=== PATIENT | male | born 1945 | race Caucasian/White ===

== ENCOUNTER 2022-03-21 13:33 | Inpatient (IN) | payer BC, SELFPAY ==
[2022-03-21] VITALS (10 sets, daily range): BP systolic 143–173; BP diastolic 55–83; PULSE 47–63; RESP 18; TEMP 36.2–36.5; O2SAT 99–100; BMI 32.5; BMI 33.2
--- NOTE | 2022-03-21 14:13 | ED.GENADULT ---
HPI - General Adult General Time Seen by Provider: 14:14 Date Seen: 03/21/22 Chief complaint: Unspecified Complaint, Adult Stated complaint: Low sodium/from [facility] Time Seen by Provider: 03/21/22 14:00 Source: patient Mode of arrival: ambulatory History of Present Illness HPI narrative: Dashawn is a 76-year-old male past medical history includes hypertension currently on metoprolol and lisinopril presents emerged department from clinic with abnormal lab. Patient states over the last 3 weeks he has had increased weakness and lightheadedness, he was seen by his primary Dr. Duckworth today, labs, ECG and XR chest were performed. Patient has also had increased lower extremity swelling over the last 6 months, plan was for him to be placed on Lasix, his metabolic panel showed a sodium level of 120, he was told presents emerged department. Patient denies any chest pain or shortness of breath, the last 3 weeks he has had decreased appetite, he denies any loss of taste or smell, does not usually use salt, but he has a bag of fritos for lunch daily. He has no history of CAD, heart failure or stroke. No family history. No family history. He denies any exertional shortness of breath or orthopnea. Denies any cough, fevers, chills, urinary or bowel complaints. No other concerns at this time. Related Data Home Medications Medication Instructions Recorded Confirmed cholecalciferol (vitamin D3) 250 250 mcg PO QDAY cap 03/21/22 03/21/22 mcg (10,000 unit) capsule finasteride 5 mg tablet 5 mg PO DAILY 03/21/22 03/21/22 lisinopril 20 mg tablet 20 mg PO DAILY tab 03/21/22 03/21/22 metoprolol succinate 50 mg mg PO DAILY 03/21/22 03/21/22 tablet,extended release 24 hr multivitamin (Multiple Vitamins 1 tab PO QDAY 03/21/22 03/21/22 tablet) simvastatin 20 mg tablet 20 mg PO .Bedtime 03/21/22 03/21/22 Previous Rx's Medication Instructions Recorded furosemide 20 mg tablet (Lasix) 20 mg PO QAM #30 tab 03/21/22 Allergies Allergy/AdvReac Type Severity Reaction Status Date / Time hydrochlorothiazide Allergy Intermediate heart Verified 03/21/22 09:48 papitations Review of Systems Status of ROS: Reports: 10 or more systems reviewed and unremarkable except as noted in History and below [facility] Medical History Edema Surgical History Status post transurethral resection of prostate Social History Smoking Status: Never smoker How often do you have a drink containing alcohol: 4 or more times a week How many standard drinks containing alcohol do you have on a typical day: 3 or 4 How often do you have six or more drinks on one occasion: Never AUDIT-C Alcohol total score: 5 Non-prescribed substance use: denies use Exam Narrative: Exam Narrative: General: No obvious distress sitting comfortably HEENT: Tympanic membranes within normal limits bilaterally oropharynx is clear and moist, pupils round reactive to light, extraocular muscles intact Neck: Supple full range of motion Lungs: Clear to auscultation bilaterally Heart: Normal sinus rhythm S1-S2: Abdomen: Obese, soft, bowel sounds present Extremities: +5 strength his upper lower extremities, he has +3 pitting edema lower extremities bilaterally, CMS intact. Neuro: Alert awake and oriented x3, no focal deficits, ambulation within normal limits Const: Vital Signs, click to edit/add: Vital Signs - 24 hr 03/21/22 13:52 Temperature 97.7 F Pulse Rate [Right Pulse Oximeter] 50 L Respiratory Rate 18 Blood Pressure [Ri ght Upper Arm] 170/67 H Pulse Oximetry 100 Course Course Hospital Course: 2:00 PM: AIDET performed. vitals are stable. Workup will include IV peripheral, 0.9 normal saline 125 mL/hour, will repeat CBC, metabolic panel urinalysis and a NT pro BNP. Likely admit for sodium supplementation, patient is doing well otherwise. Differential diagnosis include but not limited to, medication side effect, hypoglycemia, hypercalcemia hypo or hypernatremia, hypothyroidism, hepatic encephalopathy, sepsis, COVID, seizures as well aside etiologies. Reevaluation(s) Reevaluation #1: Sodium critical low 120, labs otherwise stable, NT proBNP elevated at 714, imaging from this afternoon showed no acute cardiopulmonary process, exam showed lower extremity edema but no other signs of heart failur, EKG was within normal limits. Plan to admit for admission, this was discussed with patient and he was in agreement. spoke with Dr. Marcelino Hospitalist and he accepts care of the patient. Vital Signs Vital signs: Initial Vital Signs Temperature 97.7 F 03/21/22 13:52 Temperature Source Temporal Artery Scan 03/21/22 13:52 Pulse Rate 50 L 03/21/22 13:52 Respiratory Rate 18 03/21/22 13:52 Blood Pressure 170/67 H 03/21/22 13:52 Blood Pressure Mean 101 03/21/22 13:52 Blood Pressure Position Sitting 03/21/22 13:52 Pulse Oximetry 100 03/21/22 13:52 Oxygen Delivery Method 03/21/22 13:52 Vital Signs Temperature 97.7 F 03/21/22 13:52 Pulse Rate 50 L 03/21/22 13:52 Respiratory Rate 18 03/21/22 13:52 Blood Pressure 170/67 H 03/21/22 13:52 Pulse Oximetry 100 03/21/22 13:52 Temperature 97.7 F 03/21/22 13:52 Pulse Rate 50 L 03/21/22 13:52 Respiratory Rate 18 03/21/22 13:52 Blood Pressure 170/67 H 03/21/22 13:52 Pulse Oximetry 100 03/21/22 13:52 Medical Decision Making Lab Data Labs: Lab Results 03/21/22 03/21/22 03/21/22 Range/Units 14:15 14:15 14:15 WBC 4.18 L (4.50-11.00) K/uL RBC 3.79 L (4.30-5.90) m/uL Hgb 12.1 L (13.5-17.5) gm/dL Hct 34.2 L (37.0-53.0) % MCV 90 (80-100) fL MCH 32 (26-34) pg MCHC 35 (32-36) gm/dL RDW Coeff of Aguilar 11.3 L (11.5-15.5) % Plt Count 145 (140-440) K/uL Neut % (Auto) 57.2 (42.0-72.0) % Lymph % (Auto) 31.1 (20-44) % [place] % (Auto) 10.0 (0.0-11.0) % Eos % (Auto) 1.2 (0.0-7.0) % Baso % (Auto) 0.5 (0.0-3.0) % Neut # (Auto) 2.40 (1.7-7.0) K/uL Lymph # (Auto) 1.30 (0.90-2.90) K/uL [place] # (Auto) 0.40 (0.00-0.90) K/UL Eos # (Auto) 0.10 (0.00-0.50) K/uL Baso # (Auto) 0.00 (0.00-0.30) K/uL Abs Immat Gran (auto) 0.00 (0.00-0.30) K/uL Sodium 120 L* (135-149) mmol/L Potassium 4.3 (3.6-5.1) mmol/L Chloride 90 L (96-114) mmol/L Carbon Dioxide 24 (20-32) mmol/L BUN 11 (7-30) mg/dL Creatinine 0.5 (0.5-1.5) mg/dL Estimated Creat Clear 60.88 Estimated GFR 104 ml/min Glucose 109 (60-115) mg/dL Calcium 8.6 (8.4-10.6) mg/dL Total Bilirubin 0.5 (0.1-1.5) mg/dL AST 31 (12-35) U/L ALT 15 (4-50) U/L Alkaline Phosphatase 62 (40-150) U/L NT-Pro-B Natriuret Pep 714 H (0-450) PG/mL Total Protein 6.2 (6.0-8.3) g/dL Albumin 4.0 (3.3-5.0) g/dL SARS-CoV-2 (PCR) (Negative) 03/21/22 Range/Units 14:30 WBC (4.50-11.00) K/uL RBC (4.30-5.90) m/uL Hgb (13.5-17.5) gm/dL Hct (37.0-53.0) % MCV (80-100) fL MCH (26-34) pg MCHC (32-36) gm/dL RDW Coeff of Aguilar (11.5-15.5) % Plt Count (140-440) K/uL Neut % (Auto) (42.0-72.0) % Lymph % (Auto) (20-44) % [place] % (Auto) (0.0-11.0) % Eos % (Auto) (0.0-7.0) % Baso % (Auto) (0.0-3.0) % Neut # (Auto) (1.7-7.0) K/uL Lymph # (Auto) (0.90-2.90) K/uL [place] # (Auto) (0.00-0.90) K/UL Eos # (Auto) (0.00-0.50) K/uL Baso # (Auto) (0.00-0.30) K/uL Abs Immat Gran (auto) (0.00-0.30) K/uL Sodium (135-149) mmol/L Potassium (3.6-5.1) mmol/L Chloride (96-114) mmol/L Carbon Dioxide (20-32) mmol/L BUN (7-30) mg/dL Creatinine (0.5-1.5) mg/dL Estimated Creat Clear Estimated GFR ml/min Glucose (60-115) mg/dL Calcium (8.4-10.6) mg/dL Total Bilirubin (0.1-1.5) mg/dL AST (12-35) U/L ALT (4-50) U/L Alkaline Phosphatase (40-150) U/L NT-Pro-B Natriuret Pep (0-450) PG/mL Total Protein (6.0-8.3) g/dL Albumin (3.3-5.0) g/dL SARS-CoV-2 (PCR) Negative SARS-CoV-2 (Negative) Discharge Plan Discharge Clinical Impression: Bilateral edema of lower extremity, Acute hyponatremia Patient Disposition: Admitted As Inpatient Condition: Improved
[2022-03-21] MEDS: 0.9 % SODIUM CHLORIDE 1000 ml 1,000 ML 125 ML IV ×2 (14:18→21:40)
[2022-03-21 14:25] LABS: Basophils Percent Auto 0.5 % (0.0-3.0); Eosinophils Percent Auto 1.2 % (0.0-7.0); Hematocrit 34.2 % (37.0-53.0); Hemoglobin* 12.1 gm/dL (13.5-17.5); Lymphocytes Percent Auto 31.1 % (20-44); Mean Corpuscular HGB Conc 35 gm/dL (32-36); Mean Corpuscular Hemoglobin 32 pg (26-34); Mean Corpuscular Volume 90 fL (80-100); Neutrophils Percent Auto 57.2 % (42.0-72.0); Platelet Count* 145 K/uL (140-440); RDW Coefficient of Variation % 11.3 % (11.5-15.5); Red Blood Count 3.79 m/uL (4.30-5.90); White Blood Count* 4.18 K/uL (4.50-11.00)
[2022-03-21 14:42] LABS: Slide Review Reflex No
[2022-03-21 14:44] LABS: Aspartate Amino Transferase* 31 U/L (12-35); Blood Urea Nitrogen* 11 mg/dL (7-30); Total Protein* 6.2 g/dL (6.0-8.3)
[2022-03-21 14:45] LABS: Alanine Aminotransferase* 15 U/L (4-50); Alkaline Phosphatase* 62 U/L (40-150); Calcium* 8.6 mg/dL (8.4-10.6); Glucose* 109 mg/dL (60-115)
[2022-03-21 14:48] LABS: Sodium* 120 mmol/L (135-149)
[2022-03-21 14:50] LABS: Carbon Dioxide* 24 mmol/L (20-32); Chloride* 90 mmol/L (96-114); Creatinine* 0.5 mg/dL (0.5-1.5); Est. Creatinine Clearance* 60.88; Estimated Glomerular Filt Rate 104 ml/min; Potassium* 4.3 mmol/L (3.6-5.1)
--- NOTE | 2022-03-21 14:50 | ED.NURSE ---
critical lab value is 120 and lab notified staff and made Dr. Davies aware of this result. Plan to admit to M/S and called HS to make aware of of admission.
[2022-03-21 14:51] LABS: Bilirubin Total* 0.5 mg/dL (0.1-1.5)
[2022-03-21 14:54] LABS: NT Pro B Type NatriureticPept* 714 PG/mL (0-450)
--- NOTE | 2022-03-21 15:43 | W.PC.EDHO ---
Primary Language: Slovak Preferred Language: Orientation Status: [x] Alert & Oriented [] Slight Confusion [] Known Dx Dementia Transfers By: [x] Assist of 1 [] Assist of 2 [] Lift Active Medications Generic Name Dose Route Start Last Admin Trade Name Freq PRN Reason Stop Dose Admin Sodium Chloride 1,000 mls @ 125 mls/hr 03/21/22 14:02 03/21/22 14:18 0.9 % Sodium Chloride 1000 Ml IV 125 mls/hr .Q8H JONATHAN Administration Description of Symptoms ED Triage Present Problem patient had labs drawn today and called patient Description informed to come in right away due to a critically low Na level. seen Dr. Duckworth for sx of lightheaded and had an EKG and blood work. not feeling very well for 3 weeks experiencing swelling in the legs for 4 months placed on diuretic. ED Triage Date of Onset of 03/21/22 Symptoms Oxygen Administration Pulse Oximetry 100 Oxygen Delivery Method Room Air
[2022-03-21 15:55] LABS: PCR FLU A Negative PCR FLU A (Negative); PCR FLU B Negative PCR FLU B (Negative)
[2022-03-21 15:56] LABS: SARS PCR* Negative SARS-CoV-2 (Negative)
[2022-03-21 17:02] LABS: Appearance Urine Clear (Clear); Bilirubin Urine Negative (Negative); Blood Urine Negative (Negative); Color Urine Yellow (Yellow); Glucose Urine Negative (Negative); Ketones Urine Negative (Negative); Leukocyte Esterase Urine Negative (Negative); Nitrite Urine Negative (Negative); Protein Urine Negative (Negative); Specific Gravity Urine 1.025 (1.000-1.030); Urobilinogen Urine 0.2 (0.2-1.0)
[2022-03-21 17:15] LABS: D Dimer Quantitative* 0.53 ug/ml (0.00-0.50)
[2022-03-21] MEDS: FUROSEMIDE 10 MG/ML inj 20 MG IV (17:22)
[2022-03-21] MEDS: POTASSIUM BICARB 25 MEQ EFFERVESCENT TAB PO (17:23)
[2022-03-21 17:29] LABS: Troponin I* < 0.01 ng/mL (0.01-0.04)
[2022-03-21 18:31] LABS: Triglycerides* 173 mg/dL (40-149)
--- NOTE | 2022-03-21 18:34 | PM.IMHP1 ---
Hospitalist- H&P: JEAN PIERRE History of Present Illness Date Seen: 03/21/22 Chief complaint: Low sodium/from [facility] Narrative: Dashawn Dorado is a 76 year old male admitted to the hospital with hyponatremia and lower extremity edema. Patient reports that starting about 6 months ago he was developing lower extremity edema. He went to the clinic today for evaluation of this and was found to have a sodium of 120. He was referred to the emergency room and admitted for this evaluation and treatment. He has not had any previous history of hyponatremia. He does not have known heart disease, kidney disease, liver disease, DVT/PE. He has not been short of breath though does report increasing fatigue and lightheadedness for the past 1 or 2 weeks. He reports he has been eating normally. He has a low-salt diet. He has not had any vomiting or diarrhea. No orthopnea or unusual exertional dyspnea. Review of Systems Narrative: Patient reports feeling well other than the issues above. No respiratory illness, fever, sore throat, cough, chest pain, nausea, vomiting, abdominal pain, diarrhea, melena or blood in the stool. No urinary problems. He does have prostate problems for which he takes finasteride. He reports he voids once at night. [facility] Medical History (Updated 03/21/22 @ 18:41 by Tien Marcelino MD) Edema History of traumatic brain injury Surgical History (Updated 03/21/22 @ 18:41 by Tien Marcelino MD) History of dilation of urethra History of melanoma excision Status post transurethral resection of prostate Family History (Updated 03/21/22 @ 18:41 by Tien Marcelino MD) Mother Diabetes Social History Highest level of school completed/degree received: Master's degree Smoking Status: Never smoker How often do you have a drink containing alcohol: 4 or more times a week Alcohol type: wine Alcohol type details: 2 glasses per day How many standard drinks containing alcohol do you have on a typical day: 3 or 4 How often do you have six or more drinks on one occasion: Never AUDIT-C Alcohol total score: 5 Non-prescribed substance use: denies use Caffeine: Yes (cup daily) service: No Meds Home Medications and Allergies Home Medications Medication Instructions Recorded Confirmed Type cholecalciferol (vitamin D3) 25 25 mcg PO DAILY 03/21/22 03/21/22 History mcg (1,000 unit) capsule finasteride 5 mg tablet 5 mg PO DAILY 03/21/22 03/21/22 History furosemide 20 mg tablet (Lasix) 20 mg PO QAM 03/21/22 03/21/22 History lisinopril 20 mg tablet 20 mg PO DAILY tab 03/21/22 03/21/22 History metoprolol succinate 50 mg 50 mg PO DAILY 03/21/22 03/21/22 History tablet,extended release 24 hr multivitamin (Multiple Vitamins 1 tab PO QDAY 03/21/22 03/21/22 History tablet) simvastatin 20 mg tablet 20 mg PO HS 03/21/22 03/21/22 History Allergies Allergy/AdvReac Type Severity Reaction Status Date / Time hydrochlorothiazide Allergy Intermediate heart Verified 03/21/22 09:48 papitations latex Allergy Verified 03/21/22 17:58 Exam Narrative: Exam Narrative: He is alert and appears in no distress. Eyes are normal. Oropharynx with small airway. Otherwise normal. Neck is supple without mass or adenopathy. Respirations are clear to auscultation. No wheezing rales rhonchi. Cardiovascular: S1, S2, regular rate and rhythm. No murmur gallop or rub. Abdomen: Bowel sounds active. Abdomen is soft without tenderness or mass. External genitalia normal. Extremities with bilateral 3+ edema to the knees. Intact pedal pulses. No tenderness. He moves all 4 extremities well. No rash Const: Vital Signs, click to edit/add: Vital Signs - 24 hr 03/21/22 13:52 03/21/22 14:55 03/21/22 15:10 Temperature 97.7 F Pulse Rate Pulse Rate [Left P ulse Oximeter] Pulse Rate [Right Pulse Oximeter] 50 L 56 L Respiratory Rate 18 Blood Pressure [Le ft Arm] Blood Pressure [Ri ght Upper Arm] 170/67 H 143/70 H 154/83 H Pulse Oximetry 100 03/21/22 15:30 03/21/22 16:26 03/21/22 16:44 Temperature Pulse Rate 48 L Pulse Rate [Left P ulse Oximeter] Pulse Rate [Right Pulse Oximeter] 49 L Respiratory Rate 18 Blood Pressure [Le ft Arm] Blood Pressure [Ri ght Upper Arm] 152/64 H Pulse Oximetry 100 100 03/21/22 16:59 03/21/22 17:29 Temperature 97.3 F L Pulse Rate Pulse Rate [Left P ulse Oximeter] 53 L 53 L Pulse Rate [Right Pulse Oximeter] Respiratory Rate 18 18 Blood Pressure [Le ft Arm] 173/73 H Blood Pressure [Ri ght Upper Arm] Pulse Oximetry 100 Documenting provider has reviewed patient's vital signs: yes Hospitalist - H&P: Result Labs Labs: Short CBC 03/21/22 Range/Units 14:15 WBC 4.18 L (4.50-11.00) K/uL Hgb 12.1 L (13.5-17.5) gm/dL Hct 34.2 L (37.0-53.0) % Plt Count 145 (140-440) K/uL BMP 03/21/22 14:15 Sodium 120 L* Potassium 4.3 Chloride 90 L Carbon Dioxide 24 BUN 11 Creatinine 0.5 Glucose 109 Calcium 8.6 Cardiac Enzymes 03/21/22 Range/Units 14:15 Troponin I < 0.01 L (0.01-0.04) ng/mL Liver Function 03/21/22 Range/Units 14:15 Total Bilirubin 0.5 (0.1-1.5) mg/dL AST 31 (12-35) U/L ALT 15 (4-50) U/L Alkaline Phosphatase 62 (40-150) U/L Albumin 4.0 (3.3-5.0) g/dL Urine 03/21/22 Range/Units 16:33 Urine Color Yellow (Yellow) Urine Appearance Clear (Clear) Urine pH 7.0 (5.0-8.5) Ur Specific [place] 1.025 (1.000-1.030) Urine Protein Negative (Negative) Urine Glucose (UA) Negative (Negative) Assessment and Plan Assessment and plan (1) Acute hyponatremia: Status: Acute Assessment and Plan: Patient appears to have hypotonic hyponatremia. Cause for this is not clear. In the context of extravascular volume expansion with lower extremity edema consider heart disease, liver disease, thromboembolic disease and kidney disease. So far evaluation does not show an obvious explanation. Will treat with fluid restriction. Will treat volume overload with furosemide. Closely follow sodiums. (2) Bilateral edema of lower extremity: Status: Acute Assessment and Plan: Cause for edema uncertain. Likely linked with hyponatremia cause. Compression and furosemide tonight (3) Hypertension: Status: Acute (4) Hyperlipidemia: Status: Acute (5) Elevated liver function tests: Status: Acute Assessment and Plan: Considerations include fatty liver from obesity or alcohol use. Appears to be longstanding problem.
[2022-03-21] MEDS: SIMVASTATIN 20 MG TABLET PO (20:56)
[2022-03-22] VITALS (7 sets, daily range): BP systolic 146–170; BP diastolic 55–65; PULSE 46–61; RESP 16–18; TEMP 36.2–36.9; O2SAT 98–100
[2022-03-22 01:15] LABS: Sodium* 122 mmol/L (135-149)
[2022-03-22] MEDS: 0.9 % SODIUM CHLORIDE 1000 ml 1,000 ML 125 ML IV ×3 (05:19→20:53)
--- NOTE | 2022-03-22 06:57 | PC.NURSE ---
pt pleasant and cooperative. Indep in room. Compliant with FR - 1500mL. 3+ pitting edema to bilat LE. UOP 3400mL since admission to m/s floor. Bradycardic, 40-50s. Hypertensive, 140s/50s. LS clear, SOB with exertion. Tele ? Sinus Arrythmia.
[2022-03-22 07:47] LABS: Basophils Percent Auto 0.5 % (0.0-3.0); Eosinophils Percent Auto 1.5 % (0.0-7.0); Hematocrit 31.5 % (37.0-53.0); Hemoglobin* 11.4 gm/dL (13.5-17.5); Lymphocytes Percent Auto 31.7 % (20-44); Mean Corpuscular HGB Conc 36 gm/dL (32-36); Mean Corpuscular Hemoglobin 33 pg (26-34); Mean Corpuscular Volume 90 fL (80-100); Monocytes Percent Auto 10.2 % (0.0-11.0); Neutrophils Percent Auto 56.1 % (42.0-72.0); Platelet Count* 129 K/uL (140-440); RDW Coefficient of Variation % 11.4 % (11.5-15.5)
[2022-03-22 07:51] LABS: Chloride* 93 mmol/L (96-114)
[2022-03-22 07:52] LABS: Potassium* 4.1 mmol/L (3.6-5.1); Slide Review Reflex No
[2022-03-22 07:54] LABS: Creatinine* 0.5 mg/dL (0.5-1.5); Est. Creatinine Clearance* 60.88; Estimated Glomerular Filt Rate 104 ml/min
[2022-03-22 07:55] LABS: Blood Urea Nitrogen* 9 mg/dL (7-30); Calcium* 7.8 mg/dL (8.4-10.6); Carbon Dioxide* 23 mmol/L (20-32); Glucose* 104 mg/dL (60-115)
[2022-03-22 08:15] LABS: Sodium* 123 mmol/L (135-149)
[2022-03-22] MEDS: lisinopriL 20 MG TABLET PO (08:53)
[2022-03-22] MEDS: METOPROLOL SUCCINATE (XL) 50 MG TAB PO (08:53)
[2022-03-22] MEDS: FINASTERIDE 5 MG TABLET PO (08:53)
[2022-03-22] MEDS: MULTIVITAMIN/MINERALS 1 TABLET 1 TAB PO (08:53)
[2022-03-22] MEDS: FUROSEMIDE 40 MG TABLET PO (11:14)
[2022-03-22] MEDS: SODIUM CHLORIDE 1 GM TABLET PO ×2 (12:47→18:00)
--- NOTE | 2022-03-22 15:14 | PC.NURSE ---
Shift summery: Patient pleasant and cooperative. Up independently in room. Denies pain throughout shift. Continues to have IV fluids running, compliant with fluid restrictions. Vitals stable and WNL.
--- NOTE | 2022-03-22 16:23 | PM.IMPN1 ---
Progress Note: A&P Assessment and plan (1) Acute hyponatremia: Status: Acute Assessment and Plan: Previous sodium levels have been 137-143 from 2017 to 2019. Fluid restriction. Salt tabs. Normal saline infusing. Trending. Next 2:04 p.m. tonight pre differential heart failure and/or liver disease checking abd u/s and ggt (2) Bilateral edema of lower extremity: Status: Acute Assessment and Plan: Increasing his previous Lasix home dosing from 20 mg to 40 mg q.a.m. compression stockings (3) Hypertension: Status: Acute Assessment and Plan: noted.following. The previous thiazide prescription history Subjective Date Seen: 03/22/22 Interval history: Daily Progress Note - Hospital Medicine Day #: 2 CC: Overall about the same. General fatigue, increased swelling to his bilateral lower extremities, low sodium OVERNIGHT UPDATES FROM STAFF & MED, LAB, IMAGING UPDATES Nothing new to report overnight. Patient's sodium has slowly increased. Thinks he is already seeing some improvement in his edema. 146/57 Pulse 53 Afebrile On room air Weight weight changes 101.8 down to 100.3 CBC stable Sodium last checked this morning at 6:18 a.m. was 123. BNP 714 Chest x-ray reviewed Echo preliminary report showed some mild elevated right sided pressures, but overall LV function and EF and valves look good. I will await final report. Considering causes of his new pedal edema: Heart failure - BNP is elevated without baseline. Pulmonary hypertension? Renal sodium retention Early hepatic cirrhosis - abd u/s ordered Idiopathic Sodium or fluid overload Venous obstruction or insufficiency Hypothyroidism Drug effect Review of Systems: See subjective Cardiac: No new chest pain/pressure/palpitations. Respiratory: no new dyspnea. GI: No abdominal bloating Objective: Vitals: see above Lungs: Clear. Cardiac: S1S2. Two to 3+ pedal edema up to the knee bilaterally. Disposition/Potential discharge - Likely to return to previous living situation. Total time is 35 minutes with greater than 50% spent in counseling and coordination of care. Exam Const: Vital Signs, click to edit/add: Vital Signs - 24 hr 03/21/22 16:26 03/21/22 16:44 03/21/22 16:59 Temperature 97.3 F L Pulse Rate 48 L Pulse Rate [Left P ulse Oximeter] 53 L Respiratory Rate 18 18 Blood Pressure [Le ft Arm] 173/73 H Pulse Oximetry 100 100 03/21/22 17:29 03/21/22 19:00 03/21/22 23:00 Temperature 97.1 F L 97.1 F L Pulse Rate 63 Pulse Rate [Left P ulse Oximeter] 53 L 53 L 47 L Respiratory Rate 18 18 18 Blood Pressure [Le ft Arm] 154/61 H 148/55 H Pulse Oximetry 100 99 03/22/22 02:26 03/22/22 08:21 03/22/22 08:34 Temperature 97.3 F L 97.8 F Pulse Rate 61 Pulse Rate [Left P ulse Oximeter] 51 L 48 L Respiratory Rate 18 16 Blood Pressure [Le ft Arm] 148/55 H 156/59 H Pulse Oximetry 100 100 03/22/22 11:26 03/22/22 15:57 Temperature 97.5 F L Pulse Rate 53 L Pulse Rate [Left P ulse Oximeter] 46 L Respiratory Rate 18 Blood Pressure [Le ft Arm] 146/57 H Pulse Oximetry 99 Labs Labs: Laboratory Results - last 24 hr 03/21/22 03/21/22 03/21/22 14:15 14:15 16:33 WBC RBC Hgb Hct MCV MCH MCHC RDW Coeff of Aguilar Plt Count Neut % (Auto) Lymph % (Auto) [place] % (Auto) Eos % (Auto) Baso % (Auto) Neut # (Auto) Lymph # (Auto) [place] # (Auto) Eos # (Auto) Baso # (Auto) Abs Immat Gran (auto) D-Dimer Quant (PE/DVT) 0.53 H Sodium Potassium Chloride Carbon Dioxide BUN Creatinine Estimated Creat Clear Estimated GFR Glucose Calcium Troponin I < 0.01 L Triglycerides 173 H Urine Color Yellow Urine Appearance Clear Urine pH 7.0 Ur Specific [place] 1.025 Urine Protein Negative Urine Glucose (UA) Negative Urine Ketones Negative Urine Blood Negative Urine Nitrite Negative Urine Bilirubin Negative Urine Urobilinogen 0.2 Ur Leukocyte Esterase Negative 03/22/22 03/22/22 03/22/22 00:50 06:18 06:18 WBC 4.10 L RBC 3.50 L Hgb 11.4 L Hct 31.5 L MCV 90 MCH 33 MCHC 36 RDW Coeff of Aguilar 11.4 L Plt Count 129 L Neut % (Auto) 56.1 Lymph % (Auto) 31.7 [place] % (Auto) 10.2 Eos % (Auto) 1.5 Baso % (Auto) 0.5 Neut # (Auto) 2.30 Lymph # (Auto) 1.30 [place] # (Auto) 0.40 Eos # (Auto) 0.10 Baso # (Auto) 0.00 Abs Immat Gran (auto) 0.00 D-Dimer Quant (PE/DVT) Sodium 122 L* 123 L* Potassium 4.1 Chloride 93 L Carbon Dioxide 23 BUN 9 Creatinine 0.5 Estimated Creat Clear 60.88 Estimated GFR 104 Glucose 104 Calcium 7.8 L Troponin I Triglycerides Urine Color Urine Appearance Urine pH Ur Specific [place] Urine Protein Urine Glucose (UA) Urine Ketones Urine Blood Urine Nitrite Urine Bilirubin Urine Urobilinogen Ur Leukocyte Esterase
[2022-03-22 17:01] LABS: Sodium Urine Random* 72
[2022-03-22 17:20] LABS: Prothrombin Time 14.6 Seconds
[2022-03-22 17:53] LABS: Sodium* 125 mmol/L (135-149)
[2022-03-22 17:56] LABS: Gamma Glutamyl Transpeptidase* 41 U/L (8-55)
--- NOTE | 2022-03-22 18:00 | CRLHL7_ITS ---
For Patients: As a result of the Century Cures Act, medical imaging exams and procedure reports are released immediately into your electronic medical record. You may view this report before your referring provider. If you have questions, please contact your health care provider. INDICATION: New hyponatremia. TECHNIQUE: Ultrasound abdomen limited. Sonographic images of the right upper quadrant were obtained using dumont-scale and color Doppler images. COMPARISON: None. FINDINGS: Liver: Evaluation limited by poor acoustic windows from rib shadowing. Otherwise normal in size and attenuation. Few hepatic simple cysts. Gallbladder: No stones or sludge. Normal wall thickness. No pericholecystic fluid. Negative sonographic Vo`s sign. Common bile duct: 5 mm. Pancreas: Unremarkable. Right kidney: Normal in size. Normal echotexture and cortex. No suspicious masses, stones, or hydronephrosis. Vasculature: Proximal abdominal aorta and IVC are unremarkable. Questionable small right pleural effusion. IMPRESSION: 1. Few hepatic simple cysts. 2. Questionable small right pleural effusion. 3. Unremarkable sonographic appearance of the right kidney. Dictated by Louie See MD @ 03/22/2022 6:44:20 PM (Electronically Signed)
[2022-03-22] MEDS: SIMVASTATIN 20 MG TABLET PO (20:17)
--- NOTE | 2022-03-22 22:37 | PC.NURSE ---
Shift [id number]- Patient denies pain throughout shift. He is up independently and tolerates well. He is eating and drinking without issue- maintaining fluid restriction. Alert and oriented. He is also voiding.
[2022-03-23] VITALS (9 sets, daily range): BP systolic 155–183; BP diastolic 57–86; PULSE 45–74; RESP 16–20; TEMP 36.4–36.8; O2SAT 97–100
[2022-03-23] MEDS: 0.9 % SODIUM CHLORIDE 1000 ml 1,000 ML 125 ML IV ×3 (04:38→20:52)
--- NOTE | 2022-03-23 06:57 | PC.NURSE ---
END OF SHIFT NOTE: PT IS PLEASANT AND COOPERATIVE. AMBULATES INDEPENDENTLY. VSS AND WNL ON RA. PT DENIES CHEST PAIN, SOB, N/V. TELE READS SINUS BRADYCARDIA. 0.9% NaCl RUNNING @125ML/HR FOR HYPONATREMIA. PT SLEPT WELL. VOIDING WELL.
[2022-03-23 07:23] LABS: HCO3 VBG 25 mmol/L (21-28); PCO2 VBG 47 mmHG (40-50); PO2 VBG 43.2 mmHG (25-47); pH VBG 7.338 (7.32-7.43)
[2022-03-23 07:28] LABS: Basophils Percent Auto 0.8 % (0.0-3.0); Eosinophils Percent Auto 1.9 % (0.0-7.0); Hematocrit 33.6 % (37.0-53.0); Hemoglobin* 11.7 gm/dL (13.5-17.5); Immature Granulocytes Abs Auto 0.01 K/uL (0.00-0.30); Lymphocytes Percent Auto 34.8 % (20-44); Mean Corpuscular HGB Conc 35 gm/dL (32-36); Mean Corpuscular Hemoglobin 32 pg (26-34); Mean Corpuscular Volume 91 fL (80-100); Monocytes Percent Auto 9.9 % (0.0-11.0); Neutrophils Percent Auto 52.3 % (42.0-72.0); Platelet Count* 150 K/uL (140-440); RDW Coefficient of Variation % 11.6 % (11.5-15.5); Red Blood Count 3.69 m/uL (4.30-5.90); White Blood Count* 3.65 K/uL (4.50-11.00)
[2022-03-23] MEDS: SODIUM CHLORIDE 1 GM TABLET PO ×3 (07:39→17:45)
[2022-03-23 07:45] LABS: INR 1.13 (0.91-1.10); Prothrombin Time 14.9 Seconds
[2022-03-23 07:50] LABS: Iron* 87 ug/dL (49-181)
[2022-03-23 07:55] LABS: Slide Review Reflex No
[2022-03-23 07:59] LABS: Percent Iron Saturation 30 % (20-50); Total Iron Binding Capacity 288 ug/dL (261-462)
[2022-03-23 08:04] LABS: Chloride* 98 mmol/L (96-114); Sodium* 126 mmol/L (135-149)
[2022-03-23 08:05] LABS: Potassium* 4.4 mmol/L (3.6-5.1)
[2022-03-23 08:07] LABS: Creatinine* 0.5 mg/dL (0.5-1.5); Est. Creatinine Clearance* 60.88; Estimated Glomerular Filt Rate 104 ml/min; Gamma Glutamyl Transpeptidase* 38 U/L (8-55)
[2022-03-23 08:08] LABS: Blood Urea Nitrogen* 7 mg/dL (7-30); Calcium* 8.3 mg/dL (8.4-10.6); Carbon Dioxide* 24 mmol/L (20-32); Glucose* 94 mg/dL (60-115); Magnesium* 1.7 mg/dL (1.5-2.6)
[2022-03-23 08:11] LABS: NT Pro B Type NatriureticPept* 700 PG/mL (0-450)
[2022-03-23] MEDS: MULTIVITAMIN/MINERALS 1 TABLET 1 TAB PO (09:14)
[2022-03-23] MEDS: FUROSEMIDE 40 MG TABLET PO (09:14)
[2022-03-23] MEDS: METOPROLOL SUCCINATE (XL) 50 MG TAB PO (09:14)
[2022-03-23] MEDS: FINASTERIDE 5 MG TABLET PO (09:15)
[2022-03-23] MEDS: lisinopriL 20 MG TABLET PO (09:15)
--- NOTE | 2022-03-23 15:18 | P.IMPN_ITS ---
Progress Note: A&P Assessment and plan (1) Acute hyponatremia: Status: Acute Assessment and Plan: Slowly returning to normal. Sodium tabs, normal saline, fluid restriction. Causes still uncertain. Urine electrolytes and osmolarity would of been essen tial to this diagnosis if available. Imaging has been reassuring. (2) Bilateral edema of lower extremity: Status: Acute Assessment and Plan: Improving with compression and diuretics (3) Hypertension: Status: Acute Assessment and Plan: Noted, following. Home regimen. Subjective Date Seen: 03/23/22 Interval history: Daily Progress Note - Hospital Medicine Day #: 3 CC: Overall about the same. General fatigue, increased swelling to his bilateral lower extremities, low sodium OVERNIGHT UPDATES FROM STAFF & MED, LAB, IMAGING UPDATES Nothing new to report overnight. Patient's sodium has slowly increased. His edema continues to improve. 155/57 Pulse 48 afebrile Room air CBC is stable. Mild chronic anemia. INR 1.13 Sodium up to 126 BNP 700 Abdominal ultrasound yesterday afternoon 1. Few hepatic simple cysts. 2. Questionable small right pleural effusion. 3. Unremarkable sonographic appearance of the right kidney. Echo yesterday afternoon showed Normal LV size, thickness and. EF 70% Mild elevation pulmonary pressures Two view chest x-ray Negative Considering causes of his new pedal edema: Heart failure - BNP is elevated without baseline. Pulmonary hypertension/diastolic failure question? Renal sodium retention Early hepatic cirrhosis - INR is elevated. Of abdominal ultrasound is essentially normal Idiopathic Sodium or fluid overload Venous obstruction or insufficiency Hypothyroidism Drug effect Considering causes for his profound hyponatremia: CHF Cirrhosis were other liver disease No recent his thiazide diuretic No suspected excessive free water intake Glucocorticoid deficiency SIADH Renal disorder NOS Review of Systems: See subjective Cardiac: No new chest pain/pressure/palpitations. Respiratory: no new dyspnea. GI: No abdominal bloating Objective: Vitals: see above Lungs: Clear. Cardiac: S1S2. Two to 3+ pedal edema up to the knee bilaterally. Disposition/Potential discharge - Likely to return to previous living situation. Total time is 35 minutes with greater than 50% spent in counseling and coordination of care. Exam Const: Vital Signs, click to edit/add: Vital Signs - 24 hr 03/22/22 15:57 03/22/22 16:20 03/22/22 19:03 Temperature 97.2 F L 98.4 F Pulse Rate 53 L Pulse Rate [Left P ulse Oximeter] 53 L 52 L Respiratory Rate 18 16 Blood Pressure [Le ft Arm] 166/64 H 170/65 H Pulse Oximetry 98 99 03/23/22 02:13 03/23/22 02:19 03/23/22 03:30 Temperature 98.2 F 98.3 F Pulse Rate 49 L Pulse Rate [Left P ulse Oximeter] 68 74 Respiratory Rate 18 18 Blood Pressure [Le ft Arm] 183/86 H 156/66 H Pulse Oximetry 100 98 03/23/22 07:00 03/23/22 10:00 03/23/22 11:00 Temperature 97.8 F 97.6 F Pulse Rate 46 L Pulse Rate [Left P ulse Oximeter] 56 L 49 L Respiratory Rate 18 16 Blood Pressure [Le ft Arm] 155/69 H 164/69 H Pulse Oximetry 100 97 03/23/22 15:00 Temperature 98.1 F Pulse Rate 48 L Pulse Rate [Left P ulse Oximeter] 45 L Respiratory Rate 16 Blood Pressure [Le ft Arm] 155/57 H Pulse Oximetry 100 Labs Labs: Laboratory Results - last 24 hr 03/21/22 03/22/22 03/22/22 16:40 16:54 17:21 WBC RBC Hgb Hct MCV MCH MCHC RDW Coeff of Aguilar Plt Count Neut % (Auto) Lymph % (Auto) [place] % (Auto) Eos % (Auto) Baso % (Auto) Neut # (Auto) Lymph # (Auto) [place] # (Auto) Eos # (Auto) Baso # (Auto) Abs Immat Gran (auto) INR 1.10 VBG pH VBG pCO2 VBG pO2 VBG HCO3 Sodium 125 L Potassium Chloride Carbon Dioxide BUN Creatinine Estimated Creat Clear Estimated GFR Glucose Calcium Magnesium Iron TIBC % Saturation Ferritin GGT 41 NT-Pro-B Natriuret Pep TSH Ur Random Sodium 72 03/23/22 03/23/22 03/23/22 05:57 05:57 05:57 WBC 3.65 L RBC 3.69 L Hgb 11.7 L Hct 33.6 L MCV 91 MCH 32 MCHC 35 RDW Coeff of Aguilar 11.6 Plt Count 150 Neut % (Auto) 52.3 Lymph % (Auto) 34.8 [place] % (Auto) 9.9 Eos % (Auto) 1.9 Baso % (Auto) 0.8 Neut # (Auto) 1.90 Lymph # (Auto) 1.30 [place] # (Auto) 0.40 Eos # (Auto) 0.10 Baso # (Auto) 0.00 Abs Immat Gran (auto) 0.01 INR 1.13 H VBG pH VBG pCO2 VBG pO2 VBG HCO3 Sodium 126 L Potassium 4.4 Chloride 98 Carbon Dioxide 24 BUN 7 Creatinine 0.5 Estimated Creat Clear 60.88 Estimated GFR 104 Glucose 94 Calcium 8.3 L Magnesium 1.7 Iron TIBC % Saturation Ferritin GGT 38 NT-Pro-B Natriuret Pep 700 H TSH Ur Random Sodium 03/23/22 03/23/22 03/23/22 05:57 05:57 05:57 WBC RBC Hgb Hct MCV MCH MCHC RDW Coeff of Aguilar Plt Count Neut % (Auto) Lymph % (Auto) [place] % (Auto) Eos % (Auto) Baso % (Auto) Neut # (Auto) Lymph # (Auto) [place] # (Auto) Eos # (Auto) Baso # (Auto) Abs Immat Gran (auto) INR VBG pH 7.338 VBG pCO2 47 VBG pO2 43.2 VBG HCO3 25 Sodium Potassium Chloride Carbon Dioxide BUN Creatinine Estimated Creat Clear Estimated GFR Glucose Calcium Magnesium Iron 87 TIBC 288 % Saturation 30 Ferritin 224.0 GGT NT-Pro-B Natriuret Pep TSH 3.040 Ur Random Sodium
--- NOTE | 2022-03-23 18:38 | PC.NURSE ---
End of Shift: Patient pleasant and cooperative. Patient vitally stable, lungs clear, BS WNL, IV running NS at 125. Patient independent in room and denies any pain. Patient tolerating regular diet, urinating, and had 2 small BM's this shift. Patient 24 urine collection began at 1800.
[2022-03-23 19:58] LABS: Gamma Glutamyl Transpeptidase* 39 U/L (8-55)
[2022-03-23] MEDS: SIMVASTATIN 20 MG TABLET PO (20:49)
[2022-03-24] VITALS (13 sets, daily range): BP systolic 120–157; BP diastolic 47–74; PULSE 38–70; RESP 16–20; TEMP 36.6–36.9; O2SAT 96–100
[2022-03-24] MEDS: 0.9 % SODIUM CHLORIDE 1000 ml 1,000 ML 125 ML IV (04:58)
--- NOTE | 2022-03-24 07:00 | PC.NURSE ---
END OF SHIFT NOTE: PT IS PLEASANT AND COOPERATIVE. 24HR URINE SPECIMEN COLLECTION STARTED. PT DENIES CHEST PAIN, SOB, N/V. VSS AND WNL ON RA. AMBULATES INDEPENDENTLY. TELE READS NSR WITH 1ST DEGREE BLOCK. 0.9% NS RUNNING @125ML/HR. UNEVENTFUL NIGHT.?
[2022-03-24 07:32] LABS: Basophils Percent Auto 0.5 % (0.0-3.0); Eosinophils Percent Auto 1.2 % (0.0-7.0); Hematocrit 32.3 % (37.0-53.0); Hemoglobin* 11.2 gm/dL (13.5-17.5); Lymphocytes Percent Auto 32.2 % (20-44); Mean Corpuscular HGB Conc 35 gm/dL (32-36); Mean Corpuscular Hemoglobin 32 pg (26-34); Mean Corpuscular Volume 92 fL (80-100); Monocytes Percent Auto 10.3 % (0.0-11.0); Neutrophils Percent Auto 55.8 % (42.0-72.0); Platelet Count* 144 K/uL (140-440); RDW Coefficient of Variation % 11.7 % (11.5-15.5); Red Blood Count 3.51 m/uL (4.30-5.90); White Blood Count* 4.19 K/uL (4.50-11.00)
[2022-03-24 07:37] LABS: Slide Review Reflex No
[2022-03-24 07:54] LABS: Chloride* 101 mmol/L (96-114); Sodium* 129 mmol/L (135-149)
[2022-03-24 07:55] LABS: INR 1.25 (0.91-1.10); Potassium* 3.8 mmol/L (3.6-5.1); Prothrombin Time 16.2 Seconds
[2022-03-24 07:57] LABS: Blood Urea Nitrogen* 7 mg/dL (7-30); Carbon Dioxide* 26 mmol/L (20-32); Creatinine* 0.5 mg/dL (0.5-1.5); Est. Creatinine Clearance* 60.88; Estimated Glomerular Filt Rate 104 ml/min; Gamma Glutamyl Transpeptidase* 36 U/L (8-55)
[2022-03-24 07:58] LABS: Calcium* 8.3 mg/dL (8.4-10.6); Glucose* 95 mg/dL (60-115)
[2022-03-24 08:03] LABS: NT Pro B Type NatriureticPept* 721 PG/mL (0-450)
[2022-03-24] MEDS: SODIUM CHLORIDE 1 GM TABLET PO ×3 (08:28→17:41)
[2022-03-24] MEDS: ACETAMINOPHEN 325 MG TABLET 650 MG PO (08:29)
[2022-03-24] MEDS: MULTIVITAMIN/MINERALS 1 TABLET 1 TAB PO (09:27)
[2022-03-24] MEDS: METOPROLOL SUCCINATE (XL) 50 MG TAB PO (09:27)
[2022-03-24] MEDS: FUROSEMIDE 40 MG TABLET PO (09:27)
[2022-03-24] MEDS: FINASTERIDE 5 MG TABLET PO (09:27)
--- NOTE | 2022-03-24 15:32 | P.IMPN_ITS ---
Progress Note: A&P Assessment and plan (1) Acute hyponatremia: Status: Acute (2) Bilateral edema of lower extremity: Status: Acute (3) Palpitations: Status: Acute (4) Bradycardia, drug induced: Status: Acute (5) Hypertension: Status: Acute Subjective Date Seen: 03/24/22 Exam Const: Vital Signs, click to edit/add: Vital Signs - 24 hr 03/23/22 19:45 03/23/22 23:00 03/24/22 02:12 Temperature 98.3 F 98.3 F Pulse Rate 69 Pulse Rate [Left P ulse Oximeter] 58 L 73 Respiratory Rate 20 16 Blood Pressure [Le ft Arm] 162/70 H 162/70 H Pulse Oximetry 100 99 03/24/22 03:00 03/24/22 07:00 03/24/22 07:43 Temperature 98.5 F 97.8 F Pulse Rate Pulse Rate [Left P ulse Oximeter] 70 48 L 56 L Respiratory Rate 16 16 18 Blood Pressure [Le ft Arm] 155/74 H 155/59 H Pulse Oximetry 96 97 03/24/22 11:00 03/24/22 11:05 03/24/22 11:08 Temperature 97.8 F Pulse Rate 38 L Pulse Rate [Left P ulse Oximeter] 41 L 48 L Respiratory Rate 16 Blood Pressure [Le ft Arm] 125/51 L 130/55 L Pulse Oximetry 100 03/24/22 12:31 Temperature 97.8 F Pulse Rate Pulse Rate [Left P ulse Oximeter] Respiratory Rate Blood Pressure [Le ft Arm] Pulse Oximetry Labs Labs: Laboratory Results - last 24 hr 03/22/22 03/23/22 03/24/22 06:18 Unknown 06:18 WBC 4.19 L RBC 3.51 L Hgb 11.2 L Hct 32.3 L MCV 92 MCH 32 MCHC 35 RDW Coeff of Aguilar 11.7 Plt Count 144 Neut % (Auto) 55.8 Lymph % (Auto) 32.2 [place] % (Auto) 10.3 Eos % (Auto) 1.2 Baso % (Auto) 0.5 Neut # (Auto) 2.30 Lymph # (Auto) 1.30 [place] # (Auto) 0.40 Eos # (Auto) 0.10 Baso # (Auto) 0.00 Abs Immat Gran (auto) 0.00 INR Sodium Potassium Chloride Carbon Dioxide BUN Creatinine Estimated Creat Clear Estimated GFR Glucose Calcium GGT 39 NT-Pro-B Natriuret Pep Ur Sodium per Vol Cancelled 03/24/22 03/24/22 06:18 06:18 WBC RBC Hgb Hct MCV MCH MCHC RDW Coeff of Aguilar Plt Count Neut % (Auto) Lymph % (Auto) [place] % (Auto) Eos % (Auto) Baso % (Auto) Neut # (Auto) Lymph # (Auto) [place] # (Auto) Eos # (Auto) Baso # (Auto) Abs Immat Gran (auto) INR 1.25 H Sodium 129 L Potassium 3.8 Chloride 101 Carbon Dioxide 26 BUN 7 Creatinine 0.5 Estimated Creat Clear 60.88 Estimated GFR 104 Glucose 95 Calcium 8.3 L GGT 36 NT-Pro-B Natriuret Pep 721 H Ur Sodium per Vol
--- NOTE | 2022-03-24 15:34 | PM.IMPN1 ---
Progress Note: A&P Assessment and plan (1) Acute hyponatremia: Status: Acute Assessment and Plan: Sodium is 120 on presentation. Currently sodium is 129. Still on IV saline. Stop IV saline today. Saline lock IV. Continue with sodium supplementation and fluid restriction. Continue with furosemide. Recheck serum sodium tomorrow. Stop his lisinopril which can potentially cause hyponatremia. Will switch with losartan 25 mg daily. (2) Bilateral edema of lower extremity: Status: Acute Assessment and Plan: Stable on current regimen. (3) Palpitations: Status: Acute Assessment and Plan: Non problematic at this time. (4) Bradycardia, drug induced: Status: Acute Assessment and Plan: Stop the metoprolol. Continue to monitor on telemetry. (5) Hypertension: Status: Acute Assessment and Plan: Will add the losartan today. Continue with furosemide. Stop metoprolol due to the bradycardia. Stop the lisinopril due to the hyponatremia. Continue to monitor his blood pressures while in hospital. May warrant additional outpatient interventions. (6) Anemia: Status: Acute Assessment and Plan: Etiology of the pancytopenia is not entirely clear at this juncture. Consider outpatient workup including vitamin B12 level, folate level, additional studies as warranted. (7) Leukopenia: Status: Acute Assessment and Plan: Etiology of the pancytopenia is not entirely clear at this juncture. Consider outpatient workup including vitamin B12 level, folate level, additional studies as warranted. (8) Thrombocytopenia: Status: Acute Assessment and Plan: Etiology of the pancytopenia is not entirely clear at this juncture. Consider outpatient workup including vitamin B12 level, folate level, additional studies as warranted. (9) Hyperprothrombinemia: Status: Acute Assessment and Plan: Etiology not entirely clear at this juncture. Continue to monitor. Plan Reviewed above with patient. He is agreeable. Answered his questions to satisfaction. Time Spent With Patient Total time spent: 30 minutes. Subjective Time Seen by Provider: 07:00 Date Seen: 03/24/22 Interval history: Generally speaking he feels much improved. He recounts to me how his awareness of the hyponatremia progressed over the course of the last few weeks. He is feeling much closer to baseline now. Continues to receive IV normal saline at this time. Tolerating oral intake. Denies nausea or vomiting. Denies chest heaviness, pressure, tightness, or pain. Denies dyspnea at rest or with exertion. Tolerating activities. Denies syncope or near-syncope. Denies any acute or chronic blood loss. Exam Narrative: Exam Narrative: Alert, oriented to self, place, time, situation. Pleasant. Cooperative. Articulate. Mood and affect are congruent. Lungs are clear to auscultation. Heart tones with regular rhythm. Abdomen with active bowel sounds, soft, nontender. Extremities with trace edema pretibially bilaterally. Independent transfer, station, and gait. No tremor, asterixis, or ataxia. No focal motor neurologic deficits. Skin is warm, dry, intact. Const: Vital Signs, click to edit/add: Vital Signs - 24 hr 03/23/22 19:45 03/23/22 23:00 03/24/22 02:12 Temperature 98.3 F 98.3 F Pulse Rate 69 Pulse Rate [Left P ulse Oximeter] 58 L 73 Respiratory Rate 20 16 Blood Pressure [Le ft Arm] 162/70 H 162/70 H Pulse Oximetry 100 99 03/24/22 03:00 03/24/22 07:00 03/24/22 07:43 Temperature 98.5 F 97.8 F Pulse Rate Pulse Rate [Left P ulse Oximeter] 70 48 L 56 L Respiratory Rate 16 16 18 Blood Pressure [Le ft Arm] 155/74 H 155/59 H Pulse Oximetry 96 97 03/24/22 11:00 03/24/22 11:05 03/24/22 11:08 Temperature 97.8 F Pulse Rate 38 L Pulse Rate [Left P ulse Oximeter] 41 L 48 L Respiratory Rate 16 Blood Pressure [Le ft Arm] 125/51 L 130/55 L Pulse Oximetry 100 03/24/22 12:31 Temperature 97.8 F Pulse Rate Pulse Rate [Left P ulse Oximeter] Respiratory Rate Blood Pressure [Le ft Arm] Pulse Oximetry Documenting provider has reviewed patient's vital signs: yes Labs Labs: Laboratory Results - last 24 hr 03/22/22 03/23/22 03/24/22 06:18 Unknown 06:18 WBC 4.19 L RBC 3.51 L Hgb 11.2 L Hct 32.3 L MCV 92 MCH 32 MCHC 35 RDW Coeff of Aguilar 11.7 Plt Count 144 Neut % (Auto) 55.8 Lymph % (Auto) 32.2 [place] % (Auto) 10.3 Eos % (Auto) 1.2 Baso % (Auto) 0.5 Neut # (Auto) 2.30 Lymph # (Auto) 1.30 [place] # (Auto) 0.40 Eos # (Auto) 0.10 Baso # (Auto) 0.00 Abs Immat Gran (auto) 0.00 INR Sodium Potassium Chloride Carbon Dioxide BUN Creatinine Estimated Creat Clear Estimated GFR Glucose Calcium GGT 39 NT-Pro-B Natriuret Pep Ur Sodium per Vol Cancelled 03/24/22 03/24/22 06:18 06:18 WBC RBC Hgb Hct MCV MCH MCHC RDW Coeff of Aguilar Plt Count Neut % (Auto) Lymph % (Auto) [place] % (Auto) Eos % (Auto) Baso % (Auto) Neut # (Auto) Lymph # (Auto) [place] # (Auto) Eos # (Auto) Baso # (Auto) Abs Immat Gran (auto) INR 1.25 H Sodium 129 L Potassium 3.8 Chloride 101 Carbon Dioxide 26 BUN 7 Creatinine 0.5 Estimated Creat Clear 60.88 Estimated GFR 104 Glucose 95 Calcium 8.3 L GGT 36 NT-Pro-B Natriuret Pep 721 H Ur Sodium per Vol
--- NOTE | 2022-03-24 19:03 | PC.NURSE ---
End of shift-- Very pleasant and cooperative, alert and oriented patient. VSS, though bradycardic, and pt is afebrile. SPO2 maintained >90% on RA. He c/o a headache this morning and was given Tylenol with relief. He denied any other pain. Telemetry shows NSR to sinus bradycardia with 1st degree AV block. This afternoon, pt's HR was noted to be as low as high 30s. Pt c/o feeling slightly lightheaded at that time, but was otherwise asymptomatic. was notified. LS CTA. He ate 100% of 3 meals without difficulty and stated a BM this afternoon. 24 hour urine collection is nearly complete. He was up independently today and tolerated it well. Report to oncoming shift.
[2022-03-24] MEDS: SIMVASTATIN 20 MG TABLET PO (20:40)
[2022-03-25 00:55] VITALS: PULSE 79
[2022-03-25 03:05] VITALS: BP 132/54; PULSE 70; RESP 16; TEMP 36.8; O2SAT 95
--- NOTE | 2022-03-25 06:37 | PC.NURSE ---
END OF SHIFT NOTE: PT IS PLEASANT AND COOPERATIVE. MOVES INDEPENDENTLY. 24HR URINE COLLECTION COMPLETED @1930. DENIES CHEST PAIN, SOB, N/V. NO PAIN REPORTED. A/O. TELE READS NSR WITH 1ST DEGREE BLOCK. LSCTA. VSS ON RA; AFEBRILE.?NIGHT UNEVENTFUL.
[2022-03-25 07:15] LABS: Basophils Percent Auto 0.5 % (0.0-3.0); Eosinophils Percent Auto 2.1 % (0.0-7.0); Hemoglobin* 11.4 gm/dL (13.5-17.5); Immature Granulocytes Abs Auto 0.01 K/uL (0.00-0.30); Lymphocytes Percent Auto 34.1 % (20-44); Mean Corpuscular HGB Conc 35 gm/dL (32-36); Mean Corpuscular Hemoglobin 32 pg (26-34); Mean Corpuscular Volume 91 fL (80-100); Monocytes Percent Auto 8.5 % (0.0-11.0); Neutrophils Percent Auto 54.5 % (42.0-72.0); Platelet Count* 150 K/uL (140-440); RDW Coefficient of Variation % 11.8 % (11.5-15.5); Red Blood Count 3.62 m/uL (4.30-5.90); White Blood Count* 3.87 K/uL (4.50-11.00)
[2022-03-25 07:17] LABS: Slide Review Reflex No
[2022-03-25 07:25] VITALS: PULSE 43
[2022-03-25 07:41] LABS: Sodium* 130 mmol/L (135-149)
[2022-03-25 08:21] VITALS: BP 153/66; PULSE 49; RESP 16; TEMP 36.7; O2SAT 97
[2022-03-25] MEDS: LOSARTAN POTASSIUM 50 MG TABLET PO (08:57)
[2022-03-25] MEDS: SODIUM CHLORIDE 1 GM TABLET PO (08:57)
[2022-03-25] MEDS: MULTIVITAMIN/MINERALS 1 TABLET 1 TAB PO (08:57)
[2022-03-25] MEDS: FUROSEMIDE 40 MG TABLET PO (08:57)
[2022-03-25] MEDS: FINASTERIDE 5 MG TABLET PO (08:57)
[2022-03-25 10:24] VITALS: PULSE 49; RESP 16
--- NOTE | 2022-03-25 11:12 | PC.NURSE ---
Discharge-- Very pleasant and cooperative, alert and oriented patient discharged to home ambulatory with at approximately 11am. VSS, though he remains bradycardic, and pt is afebrile. SPO2 maintained >90% on RA. He denied any pain. LS CTA. He tolerated a regular diet without difficulties. Telemetry showed sinus jane cardia with 1st degree AV block. MD is aware. Discharge education was provided including diagnosis info, symptoms to report, medications and follow up plan. All questions answered. SL was removed with tip intact.
[2022-03-25 13:33] LABS: Cortisol, Serum 3.7 ug/dL
--- NOTE | 2022-03-25 15:47 | PM.DS1 ---
DS: Providers Provider Time Seen by Provider: 09:15 Date Seen: 03/25/22 Date of admission: 03/21/22 16:20 Primary care physician: Raji Duckworth MD Admitting Clinician: Tien Marcelino MD Attending Physician on discharge: Tien Marcelino MD Date of Discharge: 03/25/22 DS: Diagnosis Discharge Diagnosis (1) Acute hyponatremia: Status: Acute (2) Bilateral edema of lower extremity: Status: Acute (3) Bradycardia, drug induced: Status: Acute (4) Anemia: Status: Acute (5) Leukopenia: Status: Acute (6) Thrombocytopenia: Status: Acute (7) Hyperprothrombinemia: Status: Acute (8) Hypertension: Status: Acute (9) Hyperlipidemia: Status: Acute (10) Altered mental status: Status: Acute Problem details: Transient in association with a serum sodium of 120 mg/dL DS: Summary Hospital Course Hospital Course: Dashawn Dorado is a 76 year old male admitted to the hospital with hyponatremia and lower extremity edema.? Patient reports that starting about 6 months ago he was developing lower extremity edema.? He went to the clinic today for evaluation of this and was found to have a sodium of 120.? He was referred to the emergency room and admitted for this evaluation and treatment. He has not had any previous history of hyponatremia.? He does not have known heart disease, kidney disease, liver disease, DVT/PE.? He has not been short of breath though does report increasing fatigue and lightheadedness for the past 1 or 2 weeks.? He reports he has been eating normally.? He has a low-salt diet.? He has not had any vomiting or diarrhea.? No orthopnea or unusual exertional dyspnea.? On presentation his thinking was foggy. Physical exam otherwise only remarkable for bilateral lower extremity edema. Serum sodium 120. Treated with fluid restriction, sodium chloride infusion, sodium chloride tabs. Serum sodium gradually began normalizing. At time of discharge serum sodium was 130. We also stopped his lisinopril in hospital given that it can potentially cause hyponatremia. We switched this medicine to losartan. We also increased his furosemide from 20 mg daily to 40 mg daily. We also started him on compression stockings. Various labs were sent to a reference lab for further assessment of his hyponatremia. Those results are not back at the time of discharge. Patient's primary care physician will need to review these when he sees the patient followup. Developed fairly profound bradycardia in hospital with heart rate in the lower 30s. Negative troponin I's. Sinus bradycardia on electrocardiographic assessment. We stopped his metoprolol XL 50 mg once daily. This may need to be reassessed in the outpatient setting. If it is warranted consider re-starting at 12.5 mg of the metoprolol XL daily. Status at Discharge Cognitive/behavioral status at discharge: Cognitive status seems to be at baseline. Rather articulate about numerous subject matters. Alert, oriented to self, place, time, situation. Thoughtful. Time Spent with Patient Time attestation: Total time spent providing and/or coordinating discharge services: Time spent: Greater than 30 minutes Exam Narrative: Exam Narrative: Alert, oriented to self, place, time, situation. Able to engage in in-depth conversations of multiple subjects. Excellent problem solving and executive functioning abilities. Lungs clear to auscultation. Heart tones with regular rhythm. Abdomen soft with active bowel sounds nontender. Still has bilateral lower extremity edema and is tolerating compression stockings. Independent transfer, station, and gait. Eating and drinking independently without any difficulties. Const: Vital Signs, click to edit/add: Vital Signs - 24 hr 03/24/22 17:30 03/24/22 19:30 03/24/22 23:00 Temperature 98.4 F 98.1 F Pulse Rate 51 L Pulse Rate [Left P ulse Oximeter] 59 L 60 Respiratory Rate 20 18 Blood Pressure [Le ft Arm] 157/55 H 120/47 L Pulse Oximetry 100 98 03/25/22 00:55 03/25/22 03:05 03/25/22 07:25 Temperature 98.2 F Pulse Rate 79 43 L Pulse Rate [Left P ulse Oximeter] 70 Respiratory Rate 16 Blood Pressure [Le ft Arm] 132/54 L Pulse Oximetry 95 03/25/22 08:21 03/25/22 10:24 Temperature 98.1 F Pulse Rate Pulse Rate [Left P ulse Oximeter] 49 L 49 L Respiratory Rate 16 16 Blood Pressure [Le ft Arm] 153/66 H Pulse Oximetry 97 Documenting provider has reviewed patient's vital signs: yes DS: Data Data Completed and Pending Labs on day of discharge: Labs from last 24 hours 07/31/22 07/31/22 07/30/22 06:33 06:33 19:30 WBC 3.87 L RBC 3.62 L Hgb 11.4 L Hct 33.0 L MCV 91 MCH 32 MCHC 35 RDW Coeff of Aguilar 11.8 Plt Count 150 Neut % (Auto) 54.5 Lymph % (Auto) 34.1 [place] % (Auto) 8.5 Eos % (Auto) 2.1 Baso % (Auto) 0.5 Neut # (Auto) 2.10 Lymph # (Auto) 1.30 [place] # (Auto) 0.30 Eos # (Auto) 0.10 Baso # (Auto) 0.00 Abs Immat Gran (auto) 0.01 Sodium 130 L Cortisol Ur Random Osmolality Pending 03/24/22 06:18 WBC RBC Hgb Hct MCV MCH MCHC RDW Coeff of Aguilar Plt Count Neut % (Auto) Lymph % (Auto) [place] % (Auto) Eos % (Auto) Baso % (Auto) Neut # (Auto) Lymph # (Auto) [place] # (Auto) Eos # (Auto) Baso # (Auto) Abs Immat Gran (auto) Sodium Cortisol 3.7 Ur Random Osmolality Discharge Plan Discharge Disposition: Home, Self-Care Date of Admission: 03/21/22 16:20 Attending Provider on Discharge: Twan Barone Primary Care Provider: Raji Duckworth Condition: Improved Anticipated Discharge Date/Time: 03/25/22 11:00 Discharge Medications: New losartan 50 mg Tablet 50 mg PO DAILY 30 Days Qty: 30 1RF furosemide 40 mg Tablet 40 mg PO DAILY 30 Days Qty: 30 1RF sodium chloride 1,000 mg Tablet,Soluble 1 g PO TIDWM 30 Days Qty: 90 1RF Continued simvastatin 20 mg tablet 20 mg PO HS 0RF multivitamin [Multiple Vitamins] Tablet 1 tab PO QDAY 0RF finasteride 5 mg tablet 5 mg PO DAILY 0RF cholecalciferol (vitamin D3) 25 mcg (1,000 unit) capsule 25 mcg PO DAILY 0RF Discontinued metoprolol succinate 50 mg tablet extended release 24 hr 50 mg PO DAILY 0RF lisinopril 20 mg tablet 20 mg PO DAILY 0RF furosemide [Lasix] 20 mg tablet 20 mg PO QAM 0RF Label Comments: brand new Rx on 03/21/22 (today), has not picked up yet Rx Instructions: brand new Rx on 03/21/22 (today), has not picked up yet Discharge Orders: Discharge Order (Routine); Ordered 03/25/22 Ordered By: Twan Barone Patient Education: Furosemide (By mouth), Losartan (By mouth), Sodium Chloride (By mouth), Hyponatremia (GEN) Activity Restrictions/Additional Instructions: 1. 2 liter fluid restriction per day. 2. Compression stockings on daily, off every night. 3. Follow up appointment with Dr. Javier Duckworth in 2-14 days, with previsit CBC, BMP Activity Level: No Restrictions and Activity as Tolerated Discharge Diet: Regular Follow Up Appointments: Raji Duckworth MD [Primary Care Provider] - 03/29/22 2:00 pm (Follow up post hospital appointment with Dr.Helgen Cedeño is unavailable) Forms: [place] Info Instructions
[2022-03-27 17:49] LABS: Urine Osmolality 408 mOsm/kg
== END 2022-03-25 10:52 | disposition home or self-care (01) | DRG 425 ==
LOC: ED 16:24 → MEDSURG 16:24
PROVIDERS: Family Medicine; Internal Medicine; Admitting Provider Family Medicine; Emergency Provider Student in an Organized Health Care Education/Training Program; PCP Internal Medicine; Visit Provider Family Medicine
DX: E87.1 Hypo-osmolality and hyponatremia (principal); R60.0 Localized edema; I10 Essential (primary) hypertension; R94.5 Abnormal results of liver function studies; R00.2 Palpitations; R00.1 Bradycardia, unspecified; D61.818 Other pancytopenia; D72.819 Decreased white blood cell count, unspecified; D69.6 Thrombocytopenia, unspecified; D68.4 Acquired coagulation factor deficiency; R41.82 Altered mental status, unspecified; T44.7X5A Adverse effect of beta-adrenoreceptor antagonists, initial encounter; E78.5 Hyperlipidemia, unspecified; Z85.820 Personal history of malignant melanoma of skin; D64.9 Anemia, unspecified
CPT/HCPCS: 36415; 76705; 80048; 80053; 81003; 82533; 82728; 82803; 82977; 83540; 83550; 83735; 83880; 83935; 84295; 84300; 84443; 84478; 84484; 85025; 85379; 85610; 87502; 87635; 93306; 99283; 99284; 99285; A9153; A9270; J1940; J7030

== ENCOUNTER 2022-03-29 14:42 | Outpatient (CLI) | payer MEDICARE, SELFPAY ==
[2022-03-29 20:00] LABS: Chloride* 95 mmol/L (96-114); Potassium* 4.1 mmol/L (3.6-5.1); Sodium* 129 mmol/L (135-149)
[2022-03-29 20:02] LABS: Creatinine* 0.5 mg/dL (0.5-1.5); Estimated Glomerular Filt Rate 104 ml/min
[2022-03-29 20:03] LABS: Blood Urea Nitrogen* 11 mg/dL (7-30); Calcium* 8.8 mg/dL (8.4-10.6); Carbon Dioxide* 27 mmol/L (20-32); Glucose* 126 mg/dL (60-115)
== END 2022-03-29 14:43 | disposition home or self-care (01) ==
LOC: NFLDREF 14:42
PROVIDERS: PCP Internal Medicine; Visit Provider Internal Medicine
DX: R60.0 Localized edema (principal); I10 Essential (primary) hypertension
CPT/HCPCS: 80048

== ENCOUNTER 2022-04-12 13:53 | Outpatient (CLI) | payer MEDICARE, SELFPAY ==
[2022-04-12 18:24] LABS: Albumin* 4.3 g/dL (3.3-5.0)
[2022-04-12 18:25] LABS: Chloride* 94 mmol/L (96-114); Potassium* 4.4 mmol/L (3.6-5.1); Sodium* 131 mmol/L (135-149)
[2022-04-12 18:27] LABS: Aspartate Amino Transferase* 44 U/L (12-35); Bilirubin Total* 0.4 mg/dL (0.1-1.5); Carbon Dioxide* 28 mmol/L (20-32); Creatinine* 0.6 mg/dL (0.5-1.5); Estimated Glomerular Filt Rate 99 ml/min; Total Protein* 6.4 g/dL (6.0-8.3)
[2022-04-12 18:28] LABS: Alanine Aminotransferase* 27 U/L (4-50); Alkaline Phosphatase* 70 U/L (40-150); Blood Urea Nitrogen* 13 mg/dL (7-30); Glucose* 104 mg/dL (60-115)
== END 2022-04-12 13:54 | disposition home or self-care (01) ==
LOC: NFLDREF 13:54
PROVIDERS: PCP Internal Medicine; Visit Provider Internal Medicine
DX: E87.1 Hypo-osmolality and hyponatremia (principal)
CPT/HCPCS: 80053

== ENCOUNTER 2022-05-03 11:09 | Outpatient (CLI) | payer MEDICARE, SELFPAY ==
[2022-05-03 13:09] LABS: Chloride* 97 mmol/L (96-114); Sodium* 136 mmol/L (135-149)
[2022-05-03 13:10] LABS: Potassium* 4.1 mmol/L (3.6-5.1)
[2022-05-03 13:12] LABS: Carbon Dioxide* 31 mmol/L (20-32); Creatinine* 0.6 mg/dL (0.5-1.5); Estimated Glomerular Filt Rate 99 ml/min
[2022-05-03 13:13] LABS: Blood Urea Nitrogen* 15 mg/dL (7-30); Calcium* 9.2 mg/dL (8.4-10.6); Glucose* 111 mg/dL (60-115)
== END 2022-05-03 11:10 | disposition home or self-care (01) ==
LOC: NFLDREF 11:09
PROVIDERS: PCP Internal Medicine; Visit Provider Internal Medicine
DX: E87.1 Hypo-osmolality and hyponatremia (principal)
CPT/HCPCS: 80048

== ENCOUNTER 2022-08-10 14:02 | Outpatient (CLI) | payer BC, SELFPAY ==
[2022-08-10 09:24] LABS: Albumin* 4.2 g/dL (3.3-5.0)
[2022-08-10 09:25] LABS: Chloride* 102 mmol/L (96-114); Potassium* 4.8 mmol/L (3.6-5.1); Sodium* 136 mmol/L (135-149)
[2022-08-10 09:27] LABS: Alkaline Phosphatase* 66 U/L (40-150); Aspartate Amino Transferase* 48 U/L (12-35); Bilirubin Total* 0.7 mg/dL (0.1-1.5); Blood Urea Nitrogen* 10 mg/dL (7-30); Carbon Dioxide* 28 mmol/L (20-32); Cholesterol* 156 mg/dL (90-199); Creatinine* 0.6 mg/dL (0.5-1.5); Estimated Glomerular Filt Rate 98 ml/min
[2022-08-10 09:28] LABS: Alanine Aminotransferase* 38 U/L (4-50); Calcium* 9.3 mg/dL (8.4-10.6); Glucose* 100 mg/dL (60-115); HDL Cholesterol* 60 mg/dL (>=40); LDL Cholesterol Calculated 65 mg/dL (<100); Triglycerides* 154 mg/dL (40-149)
== END 2022-08-10 14:03 | disposition home or self-care (01) ==
PROVIDERS: PCP Internal Medicine; Visit Provider Internal Medicine
DX: E78.5 Hyperlipidemia, unspecified (principal); I10 Essential (primary) hypertension; E87.1 Hypo-osmolality and hyponatremia; D64.9 Anemia, unspecified; Z12.5 Encounter for screening for malignant neoplasm of prostate
CPT/HCPCS: 80053; 80061; 84153

== ENCOUNTER 2022-08-22 15:51 | Outpatient (CLI) | payer BC, SELFPAY ==
--- NOTE | 2022-08-22 16:00 | CRLHL7_ITS ---
For Patients: As a result of the Century Cures Act, medical imaging exams and procedure reports are released immediately into your electronic medical record. You may view this report before your referring provider. If you have questions, please contact your health care provider. INDICATION: ACUTE RIGHT TESTICULAR PAIN COMPARISON: none TECHNIQUE: Silva scale imaging was performed of the scrotum. In addition color Doppler and spectral Doppler analysis was performed of the testes. FINDINGS: The testes demonstrate normal arterial and venous blood flow on color Doppler and spectral Doppler analysis. The testes have uniform echogenicity with no evidence of a suspicious mass or area of inflammation. The right testis measures 3.0 x 2.2 x 2.4 cm in size and the left testis measures 3.4 x 1.9 x 2.0 cm. Right epididymis is enlarged and heterogeneous with increased vascularity. Multiple left epididymal head cysts measuring up to 5 millimeters. There is no evidence of a varicocele. Right hydrocele is present. IMPRESSION: Right epididymitis. Normal testicles. No torsion. Mild reactive right hydrocele. Dictated by Shorty Dawn MD @ 08/23/2022 9:13:19 AM (Electronically Signed)
== END 2022-08-22 15:52 | disposition home or self-care (01) ==
LOC: US 15:52
PROVIDERS: PCP Internal Medicine; Visit Provider Family Medicine
DX: N50.811 Right testicular pain (principal); N45.1 Epididymitis
CPT/HCPCS: 76870; 93976

== ENCOUNTER 2022-11-14 07:42 | Outpatient (CLI) | payer BC, SELFPAY | END 2022-11-14 07:43 | disposition home or self-care (01) | LOC: NFLDREF 11-15 14:32 | PROVIDERS: PCP Internal Medicine; Referring Provider Internal Medicine; Visit Provider Internal Medicine | DX: Z00.00 Encounter for general adult medical examination without abnormal findings (principal); I10 Essential (primary) hypertension; E78.5 Hyperlipidemia, unspecified; D64.9 Anemia, unspecified; E87.1 Hypo-osmolality and hyponatremia; D69.6 Thrombocytopenia, unspecified; N40.0 Benign prostatic hyperplasia without lower urinary tract symptoms; Z12.5 Encounter for screening for malignant neoplasm of prostate | CPT/HCPCS: 80053; 80061; 84153 ==

== ENCOUNTER 2023-02-01 09:12 | Outpatient (CLI) | payer BC, SELFPAY | END 2023-02-01 09:13 | disposition home or self-care (01) | LOC: NFLDREF 02-03 19:15 | PROVIDERS: PCP Internal Medicine; Referring Provider Internal Medicine; Visit Provider Internal Medicine | DX: H53.9 Unspecified visual disturbance (principal) | CPT/HCPCS: 82947 ==

== ENCOUNTER 2023-02-12 07:03 | Outpatient (CLI) | payer BC, SELFPAY ==
--- NOTE | 2023-02-12 07:15 | CRLHL7_ITS ---
For Patients: As a result of the Century Cures Act, medical imaging exams and procedure reports are released immediately into your electronic medical record. You may view this report before your referring provider. If you have questions, please contact your health care provider. INDICATION: History of traumatic brain injury. Diplopia. TECHNIQUE: Multiplanar multisequence imaging acquired through the brain prior to and following intravenous contrast. COMPARISON: CT brain 10/06/2021. FINDINGS: Homogeneously enhancing, T1 isointense mass expanding the sella and extending into the suprasellar cistern measures 2.1 x 2.0 x 1.4 cm (CC/TR/AP), increased in size compared to the prior CT. There is elevation of the optic chiasm. The lesion extends to the medial margin of the right cavernous internal carotid artery without convincing evidence for right cavernous sinus invasion. The infundibulum is not well-visualized, though the density draped along the superior lesion margin. Prominence of the ventricles and sulci compatible with mild diffuse cerebral volume loss. No midline shift or hydrocephalus. Few punctate FLAIR hyperintensities in the supratentorial white matter, typical for minimal chronic microvascular changes. Small encephalomalacia and gliosis within the anteroinferior left frontal lobe, typical for sequelae of remote trauma. No diffusion restriction to suggest acute infarction. No pathologic intra-axial enhancement. No recent intracranial hemorrhage or pathologic extra-axial fluid collection. The major arterial flow voids of the skullbase are preserved. Thinning of the ocular lenses. 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 Mild paranasal sinus mucosal thickening. Trace mastoid fluid bilaterally. IMPRESSION: 1. Enhancing lesion expanding the sella and extending into the suprasellar cistern, increased in size compared to 10/06/2021 and most compatible with pituitary macroadenoma. There is elevation of the optic chiasm. 2. Small encephalomalacia and gliosis within the anteroinferior left frontal lobe, most compatible with sequelae of remote trauma. 3. Mild diffuse cerebral volume loss and minimal chronic microvascular ischemic changes. Dictated by Ritchie Karimi MD @ 02/12/2023 9:04:05 PM (Electronically Signed)
== END 2023-02-12 07:04 | disposition home or self-care (01) ==
PROVIDERS: PCP Internal Medicine; Visit Provider Internal Medicine
DX: Z87.820 Personal history of traumatic brain injury (principal); G93.9 Disorder of brain, unspecified; G93.89 Other specified disorders of brain; I67.82 Cerebral ischemia
CPT/HCPCS: 70553; A9575

== ENCOUNTER 2023-02-18 10:31 | Outpatient (CLI) | payer BC, SELFPAY | END 2023-02-18 10:32 | disposition home or self-care (01) | PROVIDERS: PCP Internal Medicine; Visit Provider Internal Medicine | DX: I10 Essential (primary) hypertension (principal); E78.5 Hyperlipidemia, unspecified; E87.1 Hypo-osmolality and hyponatremia; D69.6 Thrombocytopenia, unspecified; R79.89 Other specified abnormal findings of blood chemistry; R31.0 Gross hematuria; N40.0 Benign prostatic hyperplasia without lower urinary tract symptoms | CPT/HCPCS: 82533; 84146; 84403; 84443 ==

== ENCOUNTER 2023-04-16 12:16 | Outpatient (REF) | payer MEDICARE, SELFPAY ==
[2023-04-16 13:40] LABS: Free T4 Free Thyroxine* 0.95 ng/dL (0.70-1.85)
== END 2023-04-16 12:17 | disposition home or self-care (01) ==
LOC: NPINS 12:16
PROVIDERS: PCP Internal Medicine
DX: E23.6 Other disorders of pituitary gland (principal); I10 Essential (primary) hypertension; E87.1 Hypo-osmolality and hyponatremia; E78.5 Hyperlipidemia, unspecified; R79.89 Other specified abnormal findings of blood chemistry
CPT/HCPCS: 84439

== ENCOUNTER 2023-06-06 11:24 | Outpatient (REF) | payer MEDICARE, SELFPAY ==
[2023-06-06 11:59] LABS: Free T4 Free Thyroxine* 1.09 ng/dL (0.70-1.85)
== END 2023-06-06 11:25 | disposition home or self-care (01) ==
LOC: NPINS 11:24
PROVIDERS: PCP Internal Medicine; Visit Provider Internal Medicine Endocrinology, Diabetes & Metabolism
DX: D35.2 Benign neoplasm of pituitary gland (principal)
CPT/HCPCS: 84439

== ENCOUNTER 2023-11-18 09:50 | Outpatient (CLI) | payer MEDICARE, SELFPAY | END 2023-11-18 09:51 | disposition home or self-care (01) | LOC: NFLDREF 11-19 09:01 | PROVIDERS: PCP Internal Medicine | DX: Z00.00 Encounter for general adult medical examination without abnormal findings (principal); D35.2 Benign neoplasm of pituitary gland; I10 Essential (primary) hypertension; R60.0 Localized edema; E78.5 Hyperlipidemia, unspecified; R79.89 Other specified abnormal findings of blood chemistry; D64.9 Anemia, unspecified; Z12.5 Encounter for screening for malignant neoplasm of prostate | CPT/HCPCS: 80053; 80061; 84443; 99001; G0103 ==

== ENCOUNTER 2024-12-02 07:59 | Outpatient (CLI) | payer MEDICARE, SELFPAY | END 2024-12-02 08:00 | disposition home or self-care (01) | LOC: NFLDREF 12-06 18:11 | PROVIDERS: PCP Internal Medicine; Referring Provider Internal Medicine; Visit Provider Internal Medicine | DX: E78.5 Hyperlipidemia, unspecified (principal); I10 Essential (primary) hypertension; N40.0 Benign prostatic hyperplasia without lower urinary tract symptoms; D64.9 Anemia, unspecified; Z12.5 Encounter for screening for malignant neoplasm of prostate | CPT/HCPCS: 80053; 80061; G0103 ==

== ENCOUNTER 2025-01-06 08:02 | Outpatient (CLI) | payer MEDICARE, SELFPAY | END 2025-01-06 08:03 | disposition home or self-care (01) | LOC: NFLDREF 08:03 | PROVIDERS: PCP Internal Medicine; Visit Provider Internal Medicine | DX: E03.9 Hypothyroidism, unspecified (principal) | CPT/HCPCS: 84443 ==

== ENCOUNTER 2025-01-27 07:38 | Outpatient (CLI) | payer MEDICARE, SELFPAY ==
[2025-01-28 22:19] LABS: Sex Hormone Binding Globulin 40 nmol/L (19-76); Testosterone, Adult Male 254 ng/dL (300-720); Testosterone, Bioavailable 107 ng/dL (131-682); Testosterone, Free Calculation 42 pg/mL (47-244); Testosterone, Percentage Free 1.7 % (1.6-2.9)
== END 2025-01-27 07:39 | disposition home or self-care (01) ==
LOC: NPINS 07:39
PROVIDERS: PCP Internal Medicine; Visit Provider Internal Medicine Endocrinology, Diabetes & Metabolism
DX: E23.0 Hypopituitarism (principal)
CPT/HCPCS: 84270; 84402; 84403

== ENCOUNTER 2025-04-20 10:53 | Outpatient (CLI) | payer MEDICARE, SELFPAY ==
[2025-04-20 11:35] LABS: Hematocrit 43.6 % (37.0-53.0); Hemoglobin* 14.2 gm/dL (13.5-17.5); Immature Granulocytes Abs Auto 0.00 K/uL (0.00-0.30); Immature Granulocytes Pct Auto 0.0 %; Lymphocytes Absolute Auto 1.73 K/uL (0.90-2.90); Mean Corpuscular HGB Conc 33 gm/dL (32-36); Mean Corpuscular Hemoglobin 31 pg (26-34); Mean Corpuscular Volume 95 fL (80-100); RDW Coefficient of Variation % 12.7 % (11.5-15.5); Red Blood Count 4.58 m/uL (4.30-5.90); White Blood Count* 7.03 K/uL (4.50-11.00)
[2025-04-20 11:42] LABS: Slide Review Reflex Yes
[2025-04-20 11:55] LABS: Slide Review Acceptable Review (Acceptable)
[2025-04-21 19:49] LABS: Testosterone, Adult Male 235 ng/dL (300-720); Testosterone, Bioavailable 114 ng/dL (131-682); Testosterone, Free Calculation 44 pg/mL (47-244); Testosterone, Percentage Free 1.9 % (1.6-2.9)
== END 2025-04-20 10:54 | disposition home or self-care (01) ==
LOC: NPINS 10:54
PROVIDERS: PCP Internal Medicine; Visit Provider Internal Medicine Endocrinology, Diabetes & Metabolism
DX: E23.0 Hypopituitarism (principal)
CPT/HCPCS: 84270; 84402; 84403; 85025

== ENCOUNTER 2025-04-28 08:05 | Outpatient (CLI) | payer MEDICARE, SELFPAY | END 2025-04-28 08:06 | disposition home or self-care (01) | LOC: NFLDREF 08:06 | PROVIDERS: PCP Internal Medicine; Visit Provider Internal Medicine | DX: R73.9 Hyperglycemia, unspecified (principal); I10 Essential (primary) hypertension | CPT/HCPCS: 80048 ==